=== PATIENT | female | born 2005 ===

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

== ENCOUNTER 2025-03-25 12:18 | Outpatient (REF) | payer OTHER, SELFPAY ==
[2025-03-26 08:28] LABS: Chlamydia pneumoniae PCR Not Detected (Not Detect.); Coronavirus 229E PCR Not Detected (Not Detect.); Coronavirus HKU1 PCR Not Detected (Not Detect.); Coronavirus NL63 PCR Not Detected (Not Detect.); Coronavirus OC43 PCR Not Detected (Not Detect.); RSV PCR Not Detected (Not Detect.); Rhino/Enterovirus PCR Detected (Not Detect.)
[2025-03-26 09:37] LABS: Influenza A H1 PCR Not Detected (Not Detect.); Influenza A H1-2009 PCR Not Detected (Not Detect.); Influenza A H3 PCR Not Detected (Not Detect.); SARS-CoV-2 PCR Not Detected (Not Detect.)
== END 2025-03-25 12:19 | disposition home or self-care (01) ==
LOC: HO.LNP 12:18
PROVIDERS: PCP Pediatrics; Visit Provider Physician Assistant Medical
DX: R09.81 Nasal congestion (principal); R05.9 Cough, unspecified; H92.09 Otalgia, unspecified ear; R06.00 Dyspnea, unspecified
CPT/HCPCS: 87633

== ENCOUNTER 2025-03-25 12:18 | Outpatient (AMB) | payer OTHER, SELFPAY ==
--- NOTE | 2025-03-25 12:41 | AM.OFFWIN_ITS ---
Intake Vital Signs 03/25/25 12:48 Height 5 ft 2 in Weight 123 lb BMI 22.5 BP 100/60 Blood Pressure Location Rt brachial Position Sitting Pulse 94 Pulse Source Pulse Oximeter Temp 98.3 F Temp Source Oral Pulse Oximetry (%) 99 Oxygen Delivery Method Room Air Intake Visit Reasons: EP congestion, cough,SOB [phone] Intake Note: PT presents with sinus congestion, Chest congestion with dry coughing, difficulty breathing; lungs feel tight, mild body aches/body chills. neg covid tests at home. Allergies No Known Allergies Allergy (Verified 03/25/25 12:41) Do you need a note to return to daycare/school/sports/work: Yes HPI HPI Comments History of Present Illness Details History - The patient is a 20-year-old female pr esenting with symptoms of an upper respiratory infection. - Symptoms began on Saturday night with di fficulty breathing, congestion, and a dry cough. - Reports feeling cold and experiencing ear pain. - Has pain when she takes a deep breath or coughs. - Has been using zfkm-lnc-fnsiota medica tions such as DayQuil and Rosaura-Medford without relief. - History of multiple COVID-19 infection s and respiratory issues following the flu, previously prescribed an inhaler. - She has no sick contacts or recent tra andrés. - She denies chest pain, SOB, abd pain, or n/v/d. Physical Exam General: Cooperative, healthy appearing, comfortable and no acute distress Orientation/consciousness: Patient oriented x3 Limitations: No limitations Head: Normal to inspection Ears: Hearing grossly normal bilaterally, external ears normal and TM's normal bilaterally Nose: Congestion noted, normal external nose present, normal nares present, and no nasal discharge present. Face and sinus: Sinuses nontender to palpation. Mouth: Normal oral and palatal mucosa present and moist mucous membranes noted. Throat: Tonsils normal. Uvula is midline. Posterior oropharynx with erythema and no exudates. Dry throat noted. Eyes: Appearance normal, both eyes and all related structures Neck: Normal visual inspection, full ROM. No lymphadenopathy noted. Respiratory: Clear to auscultation bilaterally. Normal respiratory effort, able to speak in complete sentences. No respiratory distress, not tachypneic, no tripod positioning and no use of accessory muscles. Cardiovascular: Regular rate and rhythm. Normal S1 and S2 Skin: No rashes or lesions noted Patient was informed and verbally consented to the use of an ambient scribe for clinic note documentation during this visit Review of Systems Const All systems reviewed & are unremarkable except as noted in HPI and below Physical Exam Vital Signs: Last Vital Signs Temp 98.3 F 03/25/25 12:48 Pulse 94 03/25/25 12:48 BP 100/60 03/25/25 12:48 Pulse Ox 99 03/25/25 12:48 Oxygen Delivery Method Room Air 03/25/25 12:48 BMI result Body Mass Index 22.5 Assessment & Plan Assessment & Plan (1) URI with cough and congestion: Code(s): J06.9 - Acute upper respiratory infection, unspecified Plan Most likely URI vs viral illness vs covid vs flu vs RSV plan - Prescribed decongestant, cough medicine, prednisone, and inhaler to alleviate symptoms. - Ordered a respiratory panel to determine if the infection is viral or bacterial. - Advised rest and monitoring of symptoms, with follow-up based on respiratory panel results. - will call with the results - follow up with PCP Orders: [place] Resp Pathogen [place] [facility] [place] J06.9 - Acute upper respiratory infection, unspecified Medications: New prednisone 40 mg (2 x 20 mg) PO DAILY 10 tabs 0RF 5 days albuterol sulfate 90 mcg/actuation 2 puffs inhalation Q6H PRN 8.5 grams 0RF shortness of breath or wheezing or cough benzonatate 100 mg PO bid-tid PRN 21 caps 0RF Cough 7 days cetirizine-pseudoephedrine 5-120 mg ER 1 tab PO BID 14 tabs 0RF 7 days Coding Level of Care Code Est Pt Level 3 (80391) Diagnoses URI with cough and congestion J06.9
[2025-03-25 12:48] VITALS: BP 100/60; PULSE 94; TEMP 36.8; O2SAT 99; BMI 22.5
--- OUTSIDE RECORDS SUMMARY | 2025-03-25 15:30 | XMS_ITS | Encounter Summary ---
Author Organization [facility] Address [address] [place] [address] Phone Care Team Providers Care Network Engineering Advisor Name Role Phone Brittany Mccurdy MD Primary Care Provider Pcp, Unknown Unavailable Unavailable Encounter Details Date Type Department Care Team (Late st Contact Info) Description 02/27/2019 Transcribe Orders [facility] Specimen Processing [address] [place] [address] Courtney Ibrahim, PUNCHBOARD FILLING MACHINE OPERATOR [address] [place] [address] [email or web address] Weight check in breast-fed > 28 days with new feeding problems (Primary Dx) Social History Tobacco Use Types Packs/Day Years Used Date Smoking Tobacco: Never Assessed Comments Unknown Sex and Gender Information Value Date Recorded Sex Assigned at Female 07/16/2017 8:56 PM EST Legal Sex Female 8:44 PM EDT Gender Identity Female 07/16/2017 8:56 PM EST Sexual Orientation Don't know 07/16/2017 8: 56 PM EST documented as of this encounter Plan of Treatment Not on file documented as of this encounter Results * Chlamydia Trachomatis and Neisseria Gonorrhoeae Nucleic Acid Detection (02/27/2019 3:00 PM EDT) CHLAMYDIA TRACHOMATIS Not Detected Not Detected [facility] NEISERIA GONORRHOEAE Not Detected Not Detected [facility] SPECIMEN TYPE URINE [facility] Urine (Urine) 02/27/2019 3:0 0 PM EDT 02/27/2019 5:18 PM EDT us Courtney Ibrahim NP NON CULTURE MICROBIOLOGY Deepthi l Result [address] [address] documented in this encounter Visit Diagnoses Diagnosis Weight check in breast-fed > 28 days with new feeding problems- Primary documented in this encounter Care Teams Network Engineering Advisor Relationship Specialty Start Date End Date Brittany Mccurdy MD PCP - General Pediatrics 07/16/17 09/27/20 Pcp, Unknown PCP - Pediatrics 09/27/20 documented as of this encounter Additional Source Comments The information contained in this document represents components of the legal health record. It is not the complete legal health record.[facility]
--- OUTSIDE RECORDS SUMMARY | 2025-03-25 15:30 | XMS_ITS | Encounter Summary ---
Author Organization [facility] Address [address] [place] [phone] Phone Care Team Providers Care Waist Cutter Name Role Phone Brittany Mccurdy MD Primary Care Provider Pcp, Unknown Unavailable Unavailable Encounter Details Date Type Department Care Team (Late st Contact Info) Description 02/25/2019 Ancillary Orders Virtual Department [address] [place] [address] Brittany Mccurdy MD [address] [place] [phone] RLQ abdominal pain; Lower abdominal pain Social History Tobacco Use Types Packs/Day Years [...] documented as of this encounter Results * US PELVIS TRANSABDOMINAL PLUS TRANSVAGINAL (02/25/2019 4:02 PM EDT) Anatomical Region Laterality Modality Pelvis, Uterus/Adnexa Ultrasound 02/25/2019 4:46 PM EDT Impressions 02/25/2019 4:49 PM EDT Simple cyst measuring up to 2.6 cm in the LEFT ovary. Normal blood flow within the ovaries. Normal uterus. Endometrial stripe thickness of 7 mm. POS - [id number] Narrative 02/25/2019 4:49 PM EDT HISTORY: Lower abdominal pain , LMP 2 1/2 weeks ago. COMPARISON: None. TECHNIQUE: Transabdominal ultrasound evaluation of pelvis. Grayscale, color and spectral Doppler imaging. FINDINGS: Uterus: Measures 7.0 x 3.0 x 4.8 cm. Midline and anteflexed. The myometrium is homogeneous. There is no myometrial mass. Endometrium: Measures 7 mm in thickness. There is no endometrial mass or focal thickening. Ovaries: Right ovary: 3.2 x 2.0 x 2.9 cm (9.7 mL). Normal arterial and venous blood flow demonstrated in the right ovary. There is no adnexal mass. Left ovary: 3.9 x 2.8 x 3.7 cm (21.1 mL). Normal arterial and venous blood flow demonstrated in the left ovary. There is an anechoic avascular simple cyst measuring 2.6 x 2.1 x 1.8 cm. Pelvic free fluid: None. Procedure Note Teresa Garcia MD - 02/25/2019 HISTORY: Lower abdominal pain , LMP 2 1/2 weeks ago. COMPARISON: None. TECHNIQUE: Transabdominal ultrasound evaluation of pelvis. Grayscale,color and spectral Doppler imaging. FINDINGS: Uterus: Measures 7.0 x 3.0 x 4.8 cm. Midline and anteflexed. Themyometrium is homogeneous. There is no myometrial mass. Endometrium: Measures 7 mm in thickness. There is no endometrial mass orfocal thickening. Ovaries: Right ovary: 3.2 x 2.0 x 2.9 cm (9.7 mL). Normal arterial and venous bloodflow demonstrated in the right ovary. There is no adnexal mass. Left ovary: 3.9 x 2.8 x 3.7 cm (21.1 mL). Normal arterial and venousblood flow demonstrated in the left ovary. There is an anechoic avascularsimple cyst measuring 2.6 x 2.1 x 1.8 cm. Pelvic free fluid: None. IMPRESSION: Simple cyst measuring up to 2.6 cm in the LEFT ovary. Normal blood flow within the ovaries. Normal uterus. Endometrial stripe thickness of 7 mm. POS - [id number] Brittany Mccurdy MD IMG US PELVIS Final R esult * US ABDOMEN LIMITED APPENDIX (ADULT) (02/25/2019 3:55 PM EDT) Anatomical Region Laterality Modality Abdomen Ultrasound 02/25/2019 4:06 PM EDT Impressions 02/25/2019 4:08 PM EDT No positive sign of acute appendicitis. The decision to obtain additional imaging should be based on the overall clinical suspicion and laboratory data. POS - [facility]-RW Narrative 02/25/2019 4:08 PM EDT Clinical history: Right lower quadrant pain. COMPARISON: None. TECHNIQUE: Limited ultrasonic examination of the right lower quadrant was performed and multiple static images obtained. FINDINGS: There is no echogenic field or free fluid in the area in the right lower quadrant that was imaged. The appendix is not identified. Procedure Note Ko Ayon MD - 02/25/2019 Clinical history: Right lower quadrant pain. COMPARISON: None. TECHNIQUE: Limited ultrasonic examination of the right lower quadrant wasperformed and multiple static images obtained. FINDINGS: There is no echogenic field or free fluid in the area in the right lowerquadrant that was imaged. The appendix is not identified. IMPRESSION: No positive sign of acute appendicitis. The decision to obtain additionalimaging should be based on the overall clinical suspicion and laboratorydata. POS - [facility]-RW Brittany Mccurdy MD IMG US ABDOMEN Final R esult documented in this encounter Visit Diagnoses Diagnosis RLQ abdominal pain Abdominal pain, right lower quadrant Lower abdominal pain Abdominal pain, other specified site Lower abdominal pain Abdominal pain, other specified site RLQ abdominal pain Abdominal pain, right lower quadrant documented in this encounter Care Teams Waist Cutter Relationship Specialty Start Date End Date Brittany Mccurdy MD PCP - General Pediatrics 07/16/17 09/27/20 Pcp, Unknown PCP - Pediatrics 09/27/20 documented as of this encounter Additional Source Comments The information contained in this document represents components of the legal health record. It is not the complete legal health record.[facility]
--- OUTSIDE RECORDS SUMMARY | 2025-03-25 15:30 | XMS_ITS | Clinical Summary ---
Author Organization [facility] Address [address] [address] Phone Care Team Providers Care Paper Sorter Name Role Phone Pcp, Unknown Unavailable Unavailable Allergies No known active allergies Medications METHYLPHENIDATE HCL (RITALIN ORAL) A ctive Social History Tobacco Use Types Packs/Day Years Used Date Smoking Tobacco: Never Assessed Education Answer Date Recorded Are you interested in more education? Not on altagracia e 10/05/2022 Are you concerned about learning? Not on file 10/05/2022 No 10/05/2022 No 10/05/2022 Digital Access Answer Date Recorded No 11/05/2022 No 11/05/2022 No 11/05/2022 Reliable internet access at home? Not on file 11/05/2022 Device with a working camera? Not on file Comments Unknown Sex and Gender Information Value Date Recorded Sex Assigned at Female 07/16/2017 8:56 PM EST Legal Sex Female 8:44 PM EDT Gender Identity Female 07/16/2017 8:56 PM EST Sexual Orientation Don't know 07/16/2017 8: 56 PM EST Last Filed Vital Signs Vital Sign Reading Time Taken Comments Blood Pressure 108/66 07/16/2017 11:23 PM EST Pulse 110 07/16/2017 11:23 PM EST Temperature 38.2 C (100.8 F) 07/16/2017 10:23 PM EST Respiratory Rate 18 07/16/2017 11:23 PM EST Oxygen Saturation 99% 07/16/2017 10:23 PM EST Inhaled Oxygen Concentration - - Weight 48.1 kg (106 lb) 07/16/2017 8:54 PM EST Height 152.4 cm (5') 07/16/2017 8:54 PM EST Body Mass Index 20.7 07/16/2017 8:54 PM EST Plan of Treatment Not on file Medical Devices Not on file Insurance [facility] [place] [address] [place] [address] PPO EPO [facility] PPO EPO [place] [address] [place] [address] [place] [address] [place] [address] [place] [address] [place] [address] PPO EPO PPO EPO [facility] PPO EPO Care Teams Paper Sorter Relationship Specialty Start Date End Date Pcp, Unknown PCP - Pediatrics 09/27/20 Additional Source Comments The information contained in this document represents components of the legal health record. It is not the complete legal health record.[facility]
--- OUTSIDE RECORDS SUMMARY | 2025-03-25 15:30 | XMS_ITS | Encounter Summary ---
Author Organization [facility] Address [address] [facility] [address] [address] [place] [address] Phone Care Team Providers Care Pay Per Click Strategist Name Role Phone Brittany Mccurdy MD Primary Care Provider Pcp, Unknown Unavailable Unavailable Encounter Details Date Type Department Care Team (Late st Contact Info) Description 07/11/2018 Ancillary Orders [facility], X-Ray [address] [address] Brittany Mccurdy MD [address] [place] [phone] Juvenile idiopathic scoliosis, unspecified spinal region Social History Tobacco Use Types Packs/Day Years [...] documented as of this encounter Results * XR SCOLIOSIS STUDY SUPINE OR ERECT 1 VIEW (07/11/2018 3:40 PM EST) Anatomical Region Laterality Modality C-spine, T-spine, L-spine Radiog raphic Imaging 07/11/2018 4:02 PM EST Impressions 07/11/2018 4:06 PM EST The thoracal lumbar curvature which is mildly increased relative to prior imaging from 2016. No hemivertebra or significant structural anomalies are evident. S/S: Follow up scoliosis POS - [id number] Narrative 07/11/2018 4:06 PM EST COMPARISON: Scoliosis series February 21, 2016 FINDINGS: There is a mild upper thoracic curvature from T1 through T8 of 7 degrees convex to the right. A thoracolumbar curvature from T10 through L4 measures 5 degrees convex to the left. Standing PA imaging is obtained for this evaluation. PA images of the thoracolumbar spine are obtained. Procedure Note Rebel Obando MD - 07/11/2018 COMPARISON: Scoliosis series February 21, 2016 FINDINGS: There is a mild upper thoracic curvature from T1 through T8 of 7 degreesconvex to the right. A thoracolumbar curvature from T10 through R8mqlswsaw 5 degrees convex to the left. Standing PA imaging is obtained for this evaluation. PA images of thethoracolumbar spine are obtained. IMPRESSION: The thoracal lumbar curvature which is mildly increased relative to priorimaging from 2016. No hemivertebra or significant structural anomalies are evident. S/S: Follow up scoliosis POS - [id number] Brittany Mccurdy MD IMG XR SPINE Final R esult documented in this encounter Visit Diagnoses Diagnosis Juvenile idiopathic scoliosis, unspecified spinal region Juvenile idiopathic scoliosis, unspecified spinal region documented in this encounter Care Teams Pay Per Click Strategist Relationship Specialty Start Date End Date Brittany Mccurdy MD PCP - General Pediatrics 07/16/17 09/27/20 Pcp, Unknown PCP - Pediatrics 09/27/20 documented as of this encounter Additional Source Comments The information contained in this document represents components of the legal health record. It is not the complete legal health record.[facility]
--- OUTSIDE RECORDS SUMMARY | 2025-03-25 15:30 | XMS_ITS | Encounter Summary ---
Author Organization [facility] Address [address] [facility] [address] [facility] [address] [place] [address] Phone Care Team Providers Care Electric Meter Tester Name Role Phone Brittany Mccurdy MD Primary Care Provider Pcp, Unknown Unavailable Unavailable Encounter Details Date Type Department Care Team (Latest Contact Info) Description 02/29/2020 Transcribe Orders [facility] Specimen Processing [address] [place] [address] Brittany Mccurdy MD [address] [place] [phone] Encounter for routine child health examination without abnormal findings (Primary Dx) Social History Tobacco Use Types [...] Trachomatis and Neisseria Gonorrhoeae Nucleic Acid Detection (02/29/2020 6:34 PM EDT) CHLAMYDIA TRACHOMATIS Not Detected Not Detected [facility] NEISERIA GONORRHOEAE Not Detected Not Detected [facility] SPECIMEN TYPE URINE [facility] Urine (Urine) 02/29/2020 6:3 4 PM EDT 02/29/2020 6:36 PM EDT Brittany Mccurdy MD NON CULTURE MICROBIOLOG Y Final Result [facility] [address] [place] [address] documented in this encounter Visit Diagnoses Diagnosis Encounter for routine child health examination without abnormal findings- Primary documented in this encounter Care Teams Electric Meter Tester Relationship Specialty Start Date End Date Brittany Mccurdy MD PCP - General Pediatrics 07/16/17 09/27/20 Pcp, Unknown PCP - Pediatrics 09/27/20 documented as of this encounter Additional Source Comments The information contained in this document represents components of the legal health record. It is not the complete legal health record.[facility]
== END 2025-03-25 13:31 | disposition home or self-care (01) ==
PROVIDERS: PCP Pediatrics; Visit Provider Physician Assistant Medical
DX: J06.9 Acute upper respiratory infection, unspecified (principal)